=== PATIENT | female | born 2000 | race Caucasian/White ===

== ENCOUNTER → 2021-04-09 11:52 | Outpatient (BNVA) | payer MEDICAID, SELFPAY | PROVIDERS: Visit Provider Family Medicine | DX: N39.0 Urinary tract infection, site not specified (principal) | CPT/HCPCS: 81003; 87077; 87086; 87184 ==

== ENCOUNTER 2022-04-06 19:33 | Emergency (ER) | payer MEDICAID, SELFPAY ==
[2022-04-06 20:05] VITALS: BMI 30.7
[2022-04-06 20:09] VITALS: BP 121/66; PULSE 66; RESP 15; TEMP 37.1; O2SAT 99
--- NOTE | 2022-04-06 20:23 | ED_ITS ---
HPI - Ear Problem General: Chief complaint: Ear Stated complaint: Earring backing stuck in both ears Time Seen by Provider: 04/06/22 19:37 History of Present Illness: Patient is a 21-year-old female comes to the ED with bilateral ear complaint. Patient got her ears pierced over 6 weeks ago and 3 days ago she put new earrings in her ear and left a man. The small tubular backing of the earring's are now stuck in the back of patient's earlobe. Associated symptoms: Reports ear or mastoid pain (Foreign body in bilateral earlobes-earring backing); Denies fever(s), headache(s) or neck pain Review of Systems Const: Denies: fever(s), chills or fatigue Eyes: Denies: change in vision or eye discomfort ENMT: Reports: ear or mastoid pain (Foreign body in bilateral earlobes-earring backing); Denies: throat pain, odynophagia, nasal discharge or nasal congestion Card: Denies: chest pain, palpitations, edema, swelling of feet/ankles, dyspnea on exertion or orthopnea Resp: Denies: dyspnea, productive cough or non-productive cough GI: Denies: abdominal pain, nausea, vomiting, diarrhea, constipation or hematochezia : Denies: flank pain, dysuria or hematuria Musc: Denies: neck pain, back pain or extremity swelling Skin/Breast: Denies: rash or new lesions Neuro: Denies: headache(s), numbness in extremities or weakness in extremities PFS ED PFSH: Medical History No pertinent family history Surgical History Hx of tonsillectomy Social History Smoking and tobacco status: never smoked Second hand smoke exposure: No Alcohol intake: current Alcohol intake frequency: holidays/special occasions only Adopted: No Caregiver/support person: Yes Lives independently: No Household members: family Marital status: Single service: No Current occupational status: employed Current occupation: [employer] History of recent travel: No Current gender identity: Female Special valdemar needs: No Physical Exam Const: COMMON NORMALS: no acute distress, patient oriented x3, healthy appearing and alert GENERAL APPEARANCE: cooperative and comfortable HENMT: COMMON NORMALS: normocephalic HEAD & SCALP: normocephalic EXTERNAL EAR: Yes other (Foreign body in bilateral earlobes) MOUTH: Normal oral and palatal mucosa present THROAT: posterior oropharynx normal and uvula midline Neck/C-Spine: COMMON NORMALS: supple GENERAL: Yes normal visual inspection Resp: COMMON NORMALS: normal respiratory effort, No retractions, No use of accessory muscles and clear to auscultation bilaterally AUSCULTATION: clear to auscultation bilaterally Cardio: COMMON NORMALS: regular rate, regular rhythm, S1 normal heart sound present, S2 normal heart sound present, No gallops present (Cardio), No clicks present (Cardio), No murmurs present (Cardio) and Peripheral pulses 2+ throughout RATE: regular rate RHYTHM: regular rhythm HEART SOUNDS: S1 normal heart sound present and S2 normal heart sound present PERIPHERAL PULSES: Peripheral pulses 2+ throughout GI: COMMON NORMALS: Normal to inspection, nondistended, normoactive bowel sounds present, Soft to palpation, non-tender and no masses PALPATION: Yes Soft to palpation : COMMON NORMALS: Yes no CVA tenderness BLADDER/KIDNEY EXAM: Yes no CVA tenderness Back/Pelvis: COMMON NORMALS: no CVA tenderness Extremity: COMMON NORMALS: normal to inspection Neuro: COMMON NORMALS: patient oriented x3 SENSORIUM/ORIENTATION: Yes alert GAIT: Yes Normal gait present Skin: GENERAL SKIN EXAM: dry skin Procedures Foreign Body Removal Time Out Performed: yes Site: ear (bilateral earlobes-cylinder earing backing ) Description of foreign body: other (Cylinder shaped earring backing in bilateral earlobes) Sedation/Analgesia: other (Lidocaine 2%-3 mL used) Technique: manual removal (Left ear) and incision made to facilitate removal (Right ear small incision made to facilitate foreign body removal) Confirmed by:: direct visualization Complications: none Post-procedure exam: awake, alert, normal BP and normal HR Neurovascular: no change from pre-procedure Course Vital Signs: Vital signs: Vital Signs Temperature 98.7 F 04/06/22 20:09 Pulse Rate 66 04/06/22 20:09 Respiratory Rate 15 04/06/22 20:09 Blood Pressure 121/66 04/06/22 20:09 Pulse Oximetry 99 04/06/22 20:09 Oxygen Delivery Me thod 04/06/22 20:09 MDM - Ear Medical Decision Making Patient is a 21-year-old female comes to the ED with bilateral ear complaint. Patient got her ears pierced over 6 weeks ago and 3 days ago she put new earrings in her ear and left a man. The small tubular backing of the earring's are now stuck in the back of patient's earlobe. Lidocaine 2% was used as local. I was able to manually remove left foreign body in earlobe and on the right earlobe I had to make a small incision with an 11 blade to facilitate removal of foreign body. I was successfully able to remove both small tubular earring backing's from both right and left earlobes. See procedure note for details. Earlobes were then irrigated extensively with normal saline and triple antibiotic ointment was applied on them by nurse along with bandages. Patient was instructed how to care for earlobe as they heal. She was told to allow it helps to completely heal before she attempts getting her ears pierced again. Return ED precautions given. Patient is to agree with plan. Discharge Plan Discharge Patient Disposition: Home Clinical Impression: Foreign body in ear lobe Qualifiers: Encounter type: initial encounter Laterality: unspecified laterality Qualified Code(s): S00.459A - Superficial foreign body of unspecified ear, initial encounter Condition: Stable Prescriptions: New cephalexin 500 mg capsule 500 mg PO Q6H 4 Days Qty: 16 0RF No Action sulfamethoxazole-trimethoprim [Bactrim DS] 800-160 mg tablet 1 tab PO BID 10 Days Qty: 20 0RF Discharge Orders: Discharge ED (Routine); Ordered 04/06/22 Ordered By: Solomon Ball Discharge Diet: Regular Discharge Activity: Resume usual activity Patient Instructions: Soft Tissue Foreign Body (ED) Activity Restrictions/Additional Instructions: Follow-up with medical provider as directed in the next 7 to 10 days for reevaluation. Clean earlobes daily with soap and water and then apply triple antibiotic ointment and bandage them. Take medications as prescribed. Allow for ears to heal up completely before attempting to da silva ears again. Return to the ER or your medical provider if condition worsens. Please read and understand discharge instructions. Thank you for choosing [facility] for your healthcare needs today. Please realize this is an emergency room and that we are providing you with a medical screening exam and this may not be complete and all inclusive of all the testing and or work up that you may need to determine your ailment or severity of your illness. It is very important that you follow up as instructed or that you return to the Emergency Department should you have concerns or if your condition changes or worsens in any way. Coding Level of Care Code ED Flat Examiner for [place] Fwd Exam Comprehensive
[2022-04-06] MEDS: neomycin-poly-bacitracin oint 0.9 gm Pkt 1 APPLIC TOPICAL (20:55)
== END 2022-04-06 21:00 | disposition home or self-care (01) ==
PROVIDERS: Emergency Provider Physician Assistant
DX: S00.452A Superficial foreign body of left ear, initial encounter (principal); S00.451A Superficial foreign body of right ear, initial encounter; X58.XXXA Exposure to other specified factors, initial encounter
CPT/HCPCS: 10120; 99283

== ENCOUNTER → 2022-04-26 12:57 | Outpatient (BNVA) | payer MEDICAID, SELFPAY | PROVIDERS: Visit Provider Family Medicine | DX: R53.83 Other fatigue (principal); R63.5 Abnormal weight gain; R79.89 Other specified abnormal findings of blood chemistry; Z76.89 Persons encountering health services in other specified circumstances | CPT/HCPCS: 80053; 84439; 84443; 84481; 85025 ==

== ENCOUNTER 2022-10-24 05:43 | Day surgery (SDC) | payer OTHER, SELFPAY ==
[2022-10-21 08:11] VITALS: BMI 32.3
[2022-10-24] VITALS (9 sets, daily range): BP systolic 118–139; BP diastolic 66–82; PULSE 58–69; RESP 12–18; TEMP 36.1–36.6; O2SAT 98–100
[2022-10-24] MEDS: sodium chloride 0.9% 1,000 ML 30 ML IV (06:13)
[2022-10-24] MEDS: scopolamine 1.5 Patch 1 PATCH TRANSDERMA (06:14)
--- NOTE | 2022-10-24 06:49 | ANES.PREANE2 ---
Pre-Anesthetic Assessment Height/Weight: Height 1.68 m Weight 90.718 kg O2 Del Method 10/24/22 06:00 Preop Diagnosis: Ventral Hernia Operation Date: 10/24/22 07:00 [place] [id number] lap repair ventral hernia w/mesh K43.9(Not Applicable) - Dioni Rendon DO Familial anesthetic complications: none Was Beta Tanner taken within 24 hours: N/A Was Clonidine taken within 24 hours: N/A Last intake: Intake Last Liquid Date 10/23/22 Last Liquid Time 21:00 Last Solid Date 10/23/22 Last Solid Time 20:30 Social No alcohol and No tobacco Exam alert, oriented x 3, clear to auscultation bilaterally and No regular rate & rhythm Airway Submandibular: within normal limits Cervical ROM: within normal limits Mallampati: Class I Dentition: full Pulmonary None reported CV/HEM None reported None reported Hepatic None reported GI ventral hernia Metabolic None reported Musc/skel None reported Neuropsych None reported Anesthetic Plan ASA status: 1 Anesthesia: General Medications/Allergies Home Medications Medication Instructions Recorded Confirmed Last Taken Type No Known Home Medications 08/08/22 10/21/22 Unknown History Allergies Allergy/AdvReac Type Severity Reaction Status Date / Time No Known Allergies Allergy Verified 10/21/22 08:10 Current Medications Generic Name Dose Route Start Last Admin Trade Name Freq PRN Reason Stop Dose Admin Sodium Chloride 1,000 mls @ 30 mls/hr 10/24/22 06:00 10/24/22 06:13 Sodium Chloride 0.9% IV 10/25/22 05:59 30 mls/hr .Q24H PHUONG Administration PFSH Anesthesia Medical History No pertinent family history No pertinent past medical history Surgical History Hx of tonsillectomy Social History Smoking and tobacco status: never smoked Second hand smoke exposure: No Alcohol intake: current Alcohol intake frequency: holidays/special occasions only Adopted: No Caregiver/support person: Yes Lives independently: No Household members: family Marital status: Single service: No Current occupational status: employed Current occupation: [employer] History of recent travel: No Current gender identity: Female Special valdemar needs: No Female Reproductive History Date of last menstrual period: 09/13/22 Spontaneous abortions: No Data Anesthesia Cardiac Studies: No Data to Display
--- NOTE | 2022-10-24 06:50 | PM.HP ---
Providers/Chief Complaint Primary Care Provider: Jhonatan Hinds DO Chief Complaint: K43.9 History of Present Illness Lorraine Pillai is a 22 year old female here for laparoscopic repair of ventral hernia with mesh Medications/Allergies Home Medications Medication Instructions Recorded Confirmed Last Taken Type No Known Home Medications 08/08/22 10/21/22 Unknown History Allergies Allergy/AdvReac Type Severity Reaction Status Date / Time No Known Allergies Allergy Verified 10/21/22 08:10 PFSH Acute PFSH: Medical History No pertinent family history No pertinent past medical history Surgical History Hx of tonsillectomy Social History Smoking and tobacco status: never smoked Second hand smoke exposure: No Alcohol intake: current Alcohol intake frequency: holidays/special occasions only Adopted: No Caregiver/support person: Yes Lives independently: No Household members: family Marital status: Single service: No Current occupational status: employed Current occupation: [employer] History of recent travel: No Current gender identity: Female Special valdemar needs: No Female Reproductive History: Date of last menstrual period: 09/13/22 Spontaneous abortions: No Vitals/I&O/Wt Last Vital Signs O2 Del Method 10/24/22 06:00 A&P Assessment and plan (1) Ventral hernia: Qualifiers: Obstruction and gangrene presence: without obstruction or gangrene Qualified Code(s): K43.9 - Ventral hernia without obstruction or gangrene Plan Laparoscopic repair of ventral hernia with mesh Attestations Medical Necessity Statement*: Home Coding Level of Care Code Acute Code for [facility] Fwd Diagnoses Ventral hernia K43.9 Obstruction and gangrene presence: without obstruction or gangrene
[2022-10-24] MEDS: ceFAZolin 2,000 MG in sodium chloride 0.9% (plus) 50 ML 100 MG IV (09:11)
--- NOTE | 2022-10-24 10:18 | PM.OP ---
Operative Report Date of procedure: October 24, 2022 Pre-op diagnosis: Preop Diagnosis Ventral hernia Post-op diagnosis: other (Spigelian hernia) Procedure done: Laparoscopic repair of spigelian hernia with mesh Implants: 6 inch round Ventralight mesh Specimens removed/disposition: Hernia sac Surgeon: Dr. Dioni Rendon DO Anesthesia: General Estimated blood loss (mL): 5 Complications: None apparent Brief History: Is a very pleasant 22-year-old female who presented to my office with a ventral hernia. Laparoscopic repair with mesh was indicated. The risk benefits were explained and documented. Procedure: Patient was wheeled into the operative room and placed on the OR table in a supine position. Abdomen was inspected prepped and draped in usual sterile fashion. Time-out was performed and all present were in agreement. A 15 blade scalp was used to make a 5 millimeter incision left upper quadrant. A Veress needle was placed into the incision and intra-abdominal insufflation was brought to 15 millimeters of mercury. A 12 millimeter trocar was placed into the left lower quadrant. A right-sided spigelian hernia containing preperitoneal fat was identified. The energy but device was then used to cut out the hernia sac. A 6 inch ventral light mesh was placed into the abdomen and brought up through the center of the hernia using an the Dipak-Ele. The mesh was then tacked in place in a double crown fashion. The skeleton of the mesh was removed via the left lower quadrant. The hernia sac was then removed from the abdomen via the left lower quadrant. The left lower quadrant port site was closed with an 0 Vicryl suture in a Dipak-Ele in a [id number] fashion. Incisions were closed with 4 O Vicryl in a subcuticular interrupted fashion. Skin glue was applied. Patient tolerated the procedure well.
[2022-10-24] MEDS: fentaNYL 50 mcg/mL INJ 2mL IVP (10:33)
[2022-10-24] MEDS: HYDROcodone-acetaminophen 5-325 mg Tablet 1 TAB PO (11:22)
--- NOTE | 2022-10-24 14:24 | ANE.PACU2 ---
Inpatient post-anesthesia follow up: Airway intact: Yes Vital signs: Temperature 97.5 F Pulse Rate 69 Respiratory Rate 16 Blood Pressure 118/66 Pulse Oximetry 100 Oxygen Delivery Me thod Room Air Oxygen Flow Rate 6 Fraction of Inspir ed Oxygen Hydration adequate: Yes Nausea and vomiting: Yes Pain level: 1 Mental status: Baseline
== END 2022-10-24 11:50 | disposition home or self-care (01) ==
PROVIDERS: PCP Family Medicine; Visit Provider Surgery
PROC: 0WQF4ZZ Repair Abdominal Wall, Percutaneous Endoscopic Approach (ICD-10-PCS; CPT 49593; principal; 2022-10-24 07:00)
DX: K43.9 Ventral hernia without obstruction or gangrene (principal)
CPT/HCPCS: 49593; 51702; 88302; J0690; J1100; J1170; J1200; J1885; J2250; J2370; J2405; J2704; J2710; J3010; J3490; J7030